=== PATIENT | female | born 1965 | race Caucasian/White ===

== ENCOUNTER → 2018-01-03 | Outpatient (CLI) | payer OTHER ==
[~2018-01-03] MED LIST: ASPIR 8181 MG PO; LASIX 20 MG TAB20 MG PO; LISINOPRIL5 MG PO; LOPRESSOR50 PO; MAG-AL PLUS XS30 ML PO; PROTONIX40 M4 PO; SEROQUEL 25 MG25 M1 PO; ZOCOR20 MG PO
== END ==
LOC: M.RAD 10:18
DX: Z12.31 Encounter for screening mammogram for malignant neoplasm of breast (principal)

== ENCOUNTER → 2019-01-09 | Outpatient (CLI) | payer OTHER | LOC: M.RAD 07:45 | DX: Z12.31 Encounter for screening mammogram for malignant neoplasm of breast (principal) ==

== ENCOUNTER → 2020-01-22 | Outpatient (CLI) | payer OTHER | LOC: M.RAD 11:36 | PROVIDERS: ATTEND Family Medicine | DX: Z12.31 Encounter for screening mammogram for malignant neoplasm of breast (principal) ==

== ENCOUNTER 2020-09-05 05:28 | Observation (INO) | payer OTHER ==
[2020-09-05] VITALS (10 sets, daily range): BP systolic 135–158; BP diastolic 68–78
[~2020-09-05] VITALS: Ht 160 cm; Wt 71.5 kg
[2020-09-05] MEDS ORDERED: OMEPRAZOLE20 M1 PO (05:39)
[2020-09-05] MEDS ORDERED: LIPITOR 20 MG T20 M1 PO (05:40)
[2020-09-05 05:52] LABS: ABSOLUTE BASOPHILS 0.1 thou/uL (0.0-0.2); ABSOLUTE EOSINOPHILS 0.1 thou/uL (0.0-0.7); ABSOLUTE LYMPHOCYTES 3.6 thou/uL (0.8-5.3); ABSOLUTE MONOCYTES 0.4 thou/uL (0.0-1.2); ABSOLUTE NEUTROPHILS 5.5 thou/uL (1.6-8.1); BASOPHILS 1.3 %; EOSINOPHILS 0.9 %; HEMATOCRIT 40.6 % (37.0-47.0); HEMOGLOBIN 14.4 gm/dL (12.0-15.0); LYMPHOCYTES 37.6 %; MCH 31.7 pg (26.0-34.0); MCHC 35.4 g/dL (28.0-37.0); MCV 89.4 fL (80.0-100.0); MONOCYTES 3.7 %; MPV 7.5 fl. (7.2-11.1); NUCLEATED RBCS 0 /100WBC; PLATELET COUNT* 273 thou/uL (150-400); POLYS 56.5 %; RBC 4.54 mil/uL (4.20-5.00); WBC 9.7 thou/uL (4.0-11.0)
[2020-09-05] MEDS ORDERED: FUROSEMIDE 20 M20 MG PO (05:56)
[2020-09-05 06:03] LABS: CALCIUM 8.8 mg/dL (8.5-10.1); POTASSIUM 3.7 mmol/L (3.5-5.1)
[2020-09-05 06:14] LABS: ALBUMIN 3.7 g/dL (3.4-5.0); MAGNESIUM 2.1 mg/dL (1.8-2.4); TOTAL BILIRUBIN 0.7 mg/dL (<0.1-1.0); TOTAL PROTEIN 6.7 g/dL (6.4-8.2)
[2020-09-05 07:10] LABS: URINE BILIRUBIN NEGATIVE (Negative); URINE BLOOD TRACE (Negative); URINE CLARITY CLEAR; URINE COLOR YELLOW; URINE GLUCOSE-RANDOM NEGATIVE (Negative); URINE KETONES NEGATIVE (Negative); URINE LEUKOCYTES-REFLEX NEGATIVE (Negative); URINE NITRITE-REFLEX NEGATIVE (Negative); URINE PROTEIN NEGATIVE (Negative); URINE SPECIFIC GRAVITY <= 1.005 (1.005-1.030); URINE UROBILINOGEN 0.2 E.U./dl (0.2-1.0)
--- NOTE | 2020-09-05 14:19 | EKG ---
[place] [address] ELECTROCARDIOGRAM REPORT Name: BRANDIE WADE Room: [address]R.#: [id number] Admission: 09/05/20 Attend Phys: Ignacio Marsh Discharge: Date of : 61 Date of Service: 09/05/20 0536 Report #: [id number] THIS REPORT FOR: //name// [facility] ED Test Date: 2020-09-05 Test Time: 05:36:04 Pat Name: BRANDIE AMARAL Department: Room: [facility] Gender: F Senior Internal Auditor: PIERO : 1965 Requested By: Selma Lao Order Number: [id number] MD: Wang Huerta Measurements Intervals [place] Rate: 60 P: 8 ND: 153 QRS: -19 QRSD: 95 T: 4 QT: 391 QTc: 391 Interpretive Statements Sinus rhythm Probable left ventricular hypertrophy Compared to ECG 12/09/2015 08:14:11 Sinus bradycardia no longer present Electronically Signed On 09-05-2020 14:19:07 CDT by Wang Huerta [email or web address] <ELECTRONICALLY SIGNED> By: Wang Huerta MD, [facility] 09/05/20 1419 0536 0536 Wang Huerta MD, [facility] /EPI
[2020-09-05] MEDS ORDERED: TRAMADOL 50 MG50 MG PO (17:00)
[2020-09-05] MEDS ORDERED: NITROSTAT0.4 M1 SUBLING (17:00)
[2020-09-05] MEDS ORDERED: NEURONTIN300 MG PO (17:00)
--- NOTE | 2020-09-05 17:10 | CARD ---
[address] [address] CARDIAC CATH REPORT Name: HO ORTIZBRANDIE CLEMONS Jackson Room: [address] Chrissy#: [id number] Admission: 09/05/20 Attend Phys: Jackson Osei Discharge: Date of : 61 Report #: [id number] THIS REPORT FOR: cc: Arlene Dickson Linda J. DO Blick, David R. MD [facility] ~ APPROVED REPORT Study performed: 09/05/2020 12:56:09 Patient Details Patient Status: ED Room #: The patient is a 54 year-old female Event Personnel Wang Huerta Stone Driller, Yudy Steen RN Fractionation Plant Supervisor, Vivi Jones RTR Scrub, Kathya Cazares RTR Monitor Procedures Performed Art Access - R radial artery Left Heart Cath w/or w/o Coronaries Hemostasis with Hemoband Indication Unstable angina Risk Factors Hypercholesterolemia, Coronary Artery DiseaseHypertension Previous Procedures/Diagnoses Previous PCI, Previous AR Admission/Lab Medications/Medications given during procedure Heparin Unfract., Lidocaine Subcut 8 ml, Nitroglycerin IA 400 mcg, Verapamil IA 5 mg, Heparin IV 3600 units Procedure Narrative The patient was brought electively to the Cardiac Catheterization Laboratory and was prepped and draped in a sterile manner. The right wrist was infiltrated with 2% Lidocaine subcutaneous anesthesia. IV conscious sedation was used throughout procedure with appropriate monitoring and was performed in the presence of a registered nurse who was an independent trained observer other than the physician performing the procedure. A Slender [place] [address] CARDIAC CATH REPORT Name: BRANDIE WADE [address] [id number] Admission: 09/05/20 Attend Phys: Jackson Osei Discharge: Date of : 61 Report #: [id number] into the right radial artery. Coronary angiography was performed using coronary diagnostic catheters. The right coronary system was accessed and visualized with a Diagnostic 5 Fr JR 4 catheter. The left coronary system was accessed and visualized with a Diagnostic 5 Fr JL 4 catheter. The left ventricle was accessed and visualized with a Diagnostic 5 Fr Pigtail catheter. Left ventricular/Aortic Valve gradient assessed via catheter pullback. Left ventriculogram was performed in VILLAGOMEZ projection. Closure device was deployed with a 6 Fr Vasc-Band Reg 24cm. The patient tolerated the procedure well and there were no complications associated with the procedure. There was no hematoma. Intraoperative Conscious Sedation Sedation start time: 1445 Case end Time: 1511 Fentanyl 75 mcg Versed 6 mg Fluoro Time: 5.3 minutes Dose: DAP 08644 cGycm2 541 mGy Contrast Type and Amount: Omnipaque 140 ml Coronary Angiography The patient's coronary anatomy is right dominant. Diagnostic Cath Left Main 0% stenosis LAD proximal stent with 0% restenosis Circumflex 0% stenosis Right Coronary 0% stenosis Left Ventriculography The left ventricle is normal in size with normal contractility. The left ventricular ejection fraction is estimated to be 60-65%. Left ventricular wall motion abnormalities are not present. There is no mitral insufficiency. Hemodynamics The aortic pressure is 178/92 mmHg with a mean of 125 mmHg. The left ventricular pressure is 173/10 mmHg with a mean of mmHg. The left ventricular end diastolic pressure is 16 mmHg. There was no gradient across the aortic valve upon pullback. Pullback from the left ventricle to the aorta revealed no gradient across the [place] [address] CARDIAC CATH REPORT Name: BRANDIE WADE Room: [address] MMariah.#: [id number] Admission: 09/05/20 Attend Phys: Jackson Osei Discharge: Date of : 61 Report #: [id number] 1. no restenosis of a stent in the proximal LAD 2. LVEF 60-65% 3. suspect noncardiac chest pain Recommendations Smoking Cessation <ELECTRONICALLY SIGNED> By: Wang Huerta MD, [facility] 09/05/201709 09 1710David Jomar Huerta MD, FACC /INF
[2020-09-05 23:06] LABS: GLYCOHEMOGLOBIN (HGB A1C) 5.3 % (4.8-5.6)
--- NOTE | 2020-09-06 09:12 | CON ---
[address] [address] CONSULTATION Name: BRANDIE WADE Room: [address] Liberty Lowe#: [id number] Admission: 09/05/20 Attend Phys: Jackson Osei Discharge: Date of : 61 Report #: [id number] THIS REPORT FOR: cc: Arlene Dickson Linda J. DO Blick, David R. MD [facility] ~ DOC #: [id number] cc: DO Wang Hinton MD [facility] DATE OF CONSULTATION: 09/05/2020 CARDIOLOGY CONSULTATION HISTORY OF PRESENT ILLNESS: The patient is a 54-year-old white female who I was asked to see in the emergency room today after she complained of chest pain. The patient has an extensive and complicated past medical history. She apparently presented back in 2007 to [place], [place] with back pain. She was felt to be having a myocardial infarction. She was sent by helicopter from [place] to [facility] on the [address] and had a coronary stent placed in her LAD. She has done well since that time. She has had several heart catheterizations that showed small vessel disease, but no restenosis of the stent. At one time following cardiac catheterization, she was placed on Ranexa at [place] that did not seem to help. She actually had repeat cardiac catheterization here at [facility] back in [address] Mendiola that again showed the stent to be widely patent. There was normal left ventricular function with an ejection fraction 60%. The stent in the LAD had a 60% restenosis, circumflex and right coronary had no significant stenosis. It was felt her chest pain is noncardiac. She has not had a recent stress test. She stays very active. For the past several days, she has had intermittent back pain similar to her heart attack. She also has occasional twinges in her chest that last very long. She also feels a pressure sensations not related to exertion or meals. She has had no recent bleeding, fever or cough. She denies any recent shortness of breath or edema. She notes occasional irregular heartbeat, but no prolonged palpitations or syncope. Because of the back pain, she finally came to the hospital and admitted for further evaluation and treatment. PAST MEDICAL HISTORY: Significant for hysterectomy. She had surgery of her uvula for sleep apnea. She has a history of hypertension and hyperlipidemia. MEDICATIONS: Include aspirin, lisinopril, metoprolol, omeprazole, Lipitor. ALLERGIES: SHE HAS PREVIOUS INTOLERANCE TO PENICILLIN. FAMILY HISTORY: Grand[place] [address] CONSULTATION Name: BRANDIE WADE Room: [address] Liberty Lowe#: [id number] Admission: 09/05/20 Attend Phys: Jackson Osei Discharge: Date of : 61 Report #: [id number] SOCIAL HISTORY: She is . She and her live on a farm outside [place]. She stays very active doing yard. 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 She rarely smokes cigarettes. No alcohol abuse. REVIEW OF SYSTEMS: No history of stroke, asthma, liver disease, kidney disease, cancer, psychiatric illness or chronic skin condition. PHYSICAL EXAMINATION: GENERAL: Revealed a middle-aged female, lying in bed. She appeared in no distress. VITAL SIGNS: She had a blood pressure of 120/60, pulse is 80. She is afebrile. HEENT: She was anicteric. Conjunctivae pink. Mucous membranes moist. NECK: Veins nondistended. No carotid bruits. Neck supple. CHEST: Clear to auscultation. HEART: Regular rate and rhythm without murmur. ABDOMEN: Soft. EXTREMITIES: Had no edema. Dorsalis pedis pulse 1+ bilaterally. SKIN: Cool and dry. NEUROLOGIC: Nonfocal. LYMPHATIC: No adenopathy. MUSCULOSKELETAL: No joint effusion. ECG showed a sinus rhythm with evidence of previous septal infarction, nonspecific T-wave changes. Workup in the emergency room, she had a portable chest x-ray, the results of which are pending. Her chest x-ray in 2016, however, showed normal heart size, clear lung fraire. LABORATORY WORK: Sodium 142, creatinine 1.0. Liver function studies were normal. Troponins all less than 0.06. Her white blood cell count 9.7, hemoglobin 14.4. IMPRESSION AND RECOMMENDATIONS: 1. Possible crescendo angina. Recommend repeat cardiac catheterization. 2. Hypertension. The patient is on MARY JO inhibitor, beta raymond. 3. Hyperlipidemia. The patient is on a statin drug. 4. Tobacco abuse. 5. History of migraine headaches. Wang Huerta MD FACC DRViridiana/MARILUZ/[place] [address] CONSULTATION Name: BRANDIE WADE Room: [address] Liberty Lowe#: [id number] Admission: 09/05/20 Attend Phys: Jackson Osei Discharge: Date of : 61 Report #: [id number] <ELECTRONICALLY SIGNED> By: Wang Huerta MD, FACC 09/06/20 0912 0853 [id number] Huerta MD, FACC /nt
== END 2020-09-05 14:22 | disposition home or self-care (01) ==
LOC: M.ERS 05:28 → M.TBA-ER 07:35
PROVIDERS: Emergency Medicine; ADMIT Internal Medicine; ATTEND Internal Medicine
DX: I25.118 Atherosclerotic heart disease of native coronary artery with other forms of angina pectoris (principal); Z20.822 Contact with and (suspected) exposure to COVID-19; K21.9 Gastro-esophageal reflux disease without esophagitis; I10 Essential (primary) hypertension; E78.5 Hyperlipidemia, unspecified; M54.9 Dorsalgia, unspecified; G47.33 Obstructive sleep apnea (adult) (pediatric); I25.2 Old myocardial infarction; Z79.82 Long term (current) use of aspirin; Z79.899 Other long term (current) drug therapy; Z95.818 Presence of other cardiac implants and grafts

== ENCOUNTER → 2021-01-27 | Outpatient (CLI) | payer OTHER ==
[~2021-01-27] MED LIST changes: +FUROSEMIDE 20 M20 MG PO; +LIPITOR 20 MG T20 M1 PO; +NEURONTIN300 MG PO; +NITROSTAT0.4 M1 SUBLING; +OMEPRAZOLE20 M1 PO; +TRAMADOL 50 MG50 MG PO
== END ==
LOC: M.RAD 09:39
PROVIDERS: ATTEND Family Medicine
DX: Z12.31 Encounter for screening mammogram for malignant neoplasm of breast (principal)